=== PATIENT | male | born 1995 | race Caucasian/White ===

== ENCOUNTER 2021-10-12 09:38 | Emergency (ER) | payer OTHER ==
[2021-10-12] MEDS ORDERED: CYCLOBENZAPRINE10 MG PO (10:42)
[2021-10-12] MEDS ORDERED: NAPROXEN500 MG PO (10:42)
== END 2021-10-12 10:49 | disposition home or self-care (01) ==
LOC: FER 09:38
DX: M54.50 Low back pain, unspecified (principal)
CPT/HCPCS: 72110